=== PATIENT | female | born 1990 | race Caucasian/White ===

== ENCOUNTER 2017-12-19 02:45 | Inpatient (IN) | END 2017-12-24 20:55 | disposition home health service (06) | DRG 872 ==

== ENCOUNTER 2017-12-29 13:39 | Day surgery (SDC) | END 2017-12-29 18:31 | disposition home or self-care (01) ==

== ENCOUNTER 2018-01-26 14:07 | Emergency (ER) | END 2018-01-26 16:15 | disposition home or self-care (01) ==